=== PATIENT | female | born 1975 | race Caucasian/White ===

== ENCOUNTER → 2016-09-26 | Outpatient (CLI) | payer OTHER ==
--- NOTE | 2016-09-26 13:37 | MA ---
Right Diagnostic Digital Mammogram with iCAD Clinical Indications: Asymmetric density on recent screening mammogram. Technique: Digital spot compression CC and true lateral views. This examination was processed by the iCAD computer-aided detection system. Comparison: Recent mammogram. Baseline mammogram August 2016. Breast Density: C, 50-75%. Findings: Previous asymmetric density identified is no longer detected on the additional views or emily e lateral views. This is most likely consistent with dense overlapping breast parenchyma, however rec ommend ultrasound given the dense parenchymal pattern. Dr. Guido Bhatia agrees with findings and recommendations. Impression: ACR BI-RADS 0: Needs further imaging. Recommendation: Ultrasound of the medial aspect of the right breast for dense parenchymal pattern. Pl ease see ultrasound report and recommendations. [facility] will send a result letter to the patient. Negative mammography should not preclude additional workup of a clinically suspicious finding. Findings and recommendations have been discussed with the patient who agrees with the plan. The patient's information is entered into a reminder system with a target due date for her next mammo gram. Cosigned: Dr. Guido Bhatia
--- NOTE | 2016-09-26 15:54 | US ---
Ultrasound Right Breast History: Right breast medial aspect dense parenchymal pattern. Technique: Ultrasound imaging of the upper inner and lower inner quadrant of the right breast from th e 12 to the 6 o'clock position was performed by the intellectual property lawyer and me. Findings: In the right breast at the 2 o'clock position 3 cm from the nipple, there is a benign clus ter of simple cysts, measuring 7 x 5 x 4 mm. No evidence of solid lesions in the right breast medial aspect. The mammograms are consistent with a dense parenchymal pattern. No suspicious findings. Impressions 1. BI-RADS 2: Benign findings right breast. 2. Right breast medial aspect 7-mm cluster of benign cysts. 3. No suspicious findings on mammography.. 4. Recommend annual screening mammograms, with next mammogram in August 2017. Findings and recommendations have been discussed with the patient who agrees with the plan. Cosigned: Guido Bhatia M.D.
== END ==
LOC: CIMAGING 12:42
DX: R92.2 Inconclusive mammogram (principal); N60.11 Diffuse cystic mastopathy of right breast
CPT/HCPCS: 76641-PO; G0206

== ENCOUNTER → 2017-09-29 | Outpatient (CLI) | payer OTHER | LOC: FIMAGING 16:19 | DX: Z12.31 Encounter for screening mammogram for malignant neoplasm of breast (principal) ==

== ENCOUNTER 2018-10-18 11:42 | Observation (INO) | payer OTHER ==
[2018-10-18 12:34] LABS: PLATELET COUNT 171 10^3/uL (150-400)
--- NOTE | 2018-10-18 12:43 | EDPHY ---
H & P Stated Complaint: Sent by for cardiac workup - Personal History LMP (Females 10-55): Extended Cycle BCP/Inj Current Tetanus Diphtheria and Acellular Pertussis (TDAP): Unsure - Medical/Surgical History Hx Asthma: No Hx Chronic Respiratory Disease: No Hx Diabetes: No Hx Cardiac Disease: No Hx Renal Disease: No Hx Cirrhosis: No Hx Alcoholism: No Hx HIV/AIDS: No Hx Splenectomy or Spleen Trauma: No Other PMH: hasimotos disease - Social History Smoking Status: Never smoked Time Seen by Provider: 10/18/18 12:08 HPI/ROS: CHIEF COMPLAINT: Intermittent chest pain x2 weeks HISTORY OF PRESENT ILLNESS: 43-year-old female, 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 She describes that 2 weeks ago she was on a 3 hr bicycle ride started to develop right-sided chest pain. She is able to continue bicycling. Is no syncope or near syncope at this time. For the next few days she noted that when she would work out she has not have as much energy as usual. 6 days ago she went for 2 hr run was able to completed but notes that she felt more fatigued than usual. 2 days ago she started to develop left shoulder pain which did not seem to be related to exertion but once again notes that she did not have as much energy as she normally does. Today, she went to urgent care for evaluation was referred to the ER for further evaluation. She is currently asymptomatic while in the ER. Patient returned from a trip to [facility] on September 06 REVIEW OF SYSTEMS: 10 systems reviewed and negative with the exception of the elements mentioned in the history of present illness PAST MEDICAL & SURGICAL HISTORY: No pertinent medical or surgical history . No hyperlipidemia. No Hypertension history. SOCIAL HISTORY:Nonsmoker. No drug use. No cocaine use. FAMILY HISTORY: no family history of premature coronary artery disease or sudden unexplained , coagulopathy or vasculopathy history PHYSICAL EXAM (Prior to examination, patient consented to physical exam, hands were washed and my usual and customary physical exam procedures followed) 1) GENERAL: Well-developed, well-nourished, alert and oriented. Appears to be in no acute distress. Smiling. 2) HEAD: Normocephalic, atraumatic 3) HEENT: Pupils equal, round, reactive to light bilaterally. Sclera anicteric. Nasopharynx, oropharynx, clear, no lesions. Moist Mucous membranes. 4) NECK: Full range of motion, no meningeal signs. 5) LUNGS: Clear auscultation bilaterally, no wheezes, no rhonchi, no retractions. 6) HEART: Regular rate and rhythm, no murmur, no heave, no gallop. 7) ABDOMEN: No guarding, no rebound, no focal tenderness, negative McBurney's, negative Johnson's, negative Rovsing's, negative peritoneal sign, 8) MUSCULOSKELETAL: Moving all extremities, no focal areas of tenderness, no obvious trauma. No peripheral edema or discoloration. Negative Homans no palpable cord 9) BACK: No CVA tenderness, no midline vertebral tenderness, no fluctuance, no step-off, no obvious trauma, no visual or palpable abnormality. 10) SKIN: No rash, no petechiae. 11) Psychiatric: Patient is oriented X 3, there is no agitation. DIFFERENTIAL DIAGNOSIS: In no particular order, including but not limited to myocardial ischemia, pulmonary embolus, chest wall pain, pleural inflammation and pulmonary infectious causes. (Rio Arreola Danyell) Constitutional: Initial Vital Signs Temperature (C) 36.5 C 10/18/18 11:51 Heart Rate 52 L 10/18/18 11:51 Respiratory Rate 16 10/18/18 11:51 Blood Pressure 114/69 10/18/18 11:51 O2 Sat (%) 98 10/18/18 11:51 O2 Delivery Mode Room Air Allergies/Adverse Reactions: No Known Allergies Allergy (Verified 10/18/18 11:56) Home Medications: Medication Instructions Recorded Etonogestrel/Ethinyl Estradiol 10/18/18 [Nuvaring Vaginal Ring] Medical Decision Making - Diagnostics Imaging Results: Imaging Impressions Chest X-Ray 10/18/18 12:18 Impression: No significant interval change since 10:37 AM, with borderline cardiac silhouette enlargement, left basilar subsegmental atelectasis versus mild infiltrate, and a tiny left pleural effusion. Note: The patient had a subsequent CTPA revealing bilateral pulmonary artery thromboemboli, as well as more extensive areas of airspace disease, and that report should be separately referenced. Chest/Thorax CTA 10/18/18 13:00 Impression: Moderate-volume bilateral pulmonary artery thromboemboli, with bilateral areas of subsegmental atelectasis, infiltrate, and/or infarct, and a tiny left pleural effusion. Findings were discussed with Alessandro Arreola PA-C at 14:49, on 10/18/2018. Imaging Impressions Chest X-Ray 10/18/18 12:18 Impression: No significant interval change since 10:37 AM, with borderline cardiac silhouette enlargement, left basilar subsegmental atelectasis versus mild infiltrate, and a tiny left pleural effusion. Note: The patient had a subsequent CTPA revealing bilateral pulmonary artery thromboemboli, as well as more extensive areas of airspace disease, and that report should be separately referenced. Chest/Thorax CTA 10/18/18 13:00 Impression: Moderate-volume bilateral pulmonary artery thromboemboli, with bilateral areas of subsegmental atelectasis, infiltrate, and/or infarct, and a tiny left pleural effusion. Findings were discussed with Alessandro Arreola PA-C at 14:49, on 10/18/2018. Images reviewed myself (Rio Arreola) ED Course/Re-evaluation: 02:20 p.m.: I consulted on this patient at the request of REJI Arreola. I consulted with Dr. Wylie, rehab tech, regarding this patient's symptoms and abnormal EKG. Dr. Wylie will consult on this patient. Patient will need an echo and chest CTA. (John Gray) 12:57 p.m.: Patient has an elevated D-dimer of 0.65 describes history of pleuritic chest pain. I recommended CT angiography of the chest after discussed the indications risks benefits of imaging including, but not limited to, ionizing radiation exposure and IV contrast nephropathy. She verbalizes consent. I believe her to have decision-making capacity. 3:00 p.m.: CT angiography is positive for bilateral segmental pulmonary emboli. Discussed these results with Dr. John Gray in the ER and with the patient Will initiate Xarelto and plan on admission 3:05 p.m.: Consultation with hospitalist admit to Dr. Jenkins who will admit , hypercoag panel ordered 3:10 p.m.: Patient agrees to admission. (Rio Arreola) - Data Points Laboratory Results: Laboratory Results 10/18/18 12:25 10/18/18 12:25 10/18/18 10/18/18 10/18/18 12:29 12:25 12:25 WBC RBC Hgb Hct MCV MCH MCHC RDW Plt Count MPV Neut % (Auto) Lymph % (Auto) [place] % (Auto) Eos % (Auto) Baso % (Auto) Nucleat RBC Rel Count Absolute Neuts (auto) Absolute Lymphs (auto) Absolute Monos (auto) Absolute Eos (auto) Absolute Basos (auto) Absolute Nucleated RBC Immature Gran % Immature Gran # D-Dimer Sodium 135 mEq/L mEq/L (135-145) Potassium 4.2 mEq/L mEq/L (3.5-5.2) Chloride 109 mEq/L mEq/L (97-110) Carbon Dioxide 21 mEq/l L mEq/l (22-31) Anion Gap 5 mEq/L L mEq/L (6-14) BUN 15 mg/dL mg/dL (7-23) Creatinine 0.9 mg/dL mg/dL (0.6-1.0) Estimated GFR > 60 Glucose 92 mg/dL mg/dL (70-100) Calcium 8.9 mg/dL mg/dL (8.5-10.4) POC Troponin I 0.00 ng/mL ng/mL (0.00-0.08) TSH 2.680 uIU/mL uIU/mL (0.465-4.680) Beta HCG, Qual NEGATIVE 10/18/18 10/18/18 12:25 12:25 WBC 7.54 10^3/uL 10^3/uL (3.80-9.50) RBC 4.02 10^6/uL L 10^6/uL (4.18-5.33) Hgb 12.6 g/dL g/dL (12.6-16.3) Hct 37.6 % L % (38.0-47.0) MCV 93.5 fL fL (81.5-99.8) MCH 31.3 pg pg (27.9-34.1) MCHC 33.5 g/dL g/dL (32.4-36.7) RDW 12.0 % % (11.5-15.2) Plt Count 171 10^3/uL 10^3/uL (150-400) MPV 9.8 fL fL (8.7-11.7) Neut % (Auto) 53.0 % % (39.3-74.2) Lymph % (Auto) 36.9 % % (15.0-45.0) [place] % (Auto) 6.6 % % (4.5-13.0) Eos % (Auto) 3.1 % % (0.6-7.6) Baso % (Auto) 0.3 % % (0.3-1.7) Nucleat RBC Rel Count 0.0 % % (0.0-0.2) Absolute Neuts (auto) 4.00 10^3/uL 10^3/uL (1.70-6.50) Absolute Lymphs (auto) 2.78 10^3/uL 10^3/uL (1.00-3.00) Absolute Monos (auto) 0.50 10^3/uL 10^3/uL (0.30-0.80) Absolute Eos (auto) 0.23 10^3/uL 10^3/uL (0.03-0.40) Absolute Basos (auto) 0.02 10^3/uL 10^3/uL (0.02-0.10) Absolute Nucleated RBC 0.00 10^3/uL 10^3/uL (0-0.01) Immature Gran % 0.1 % % (0.0-1.1) Immature Gran # 0.01 10^3/uL 10^3/uL (0.00-0.10) D-Dimer 0.64 ug/mLFEU H ug/mLFEU (0.00-0.50) Sodium Potassium Chloride Carbon Dioxide Anion Gap BUN Creatinine Estimated GFR Glucose Calcium POC Troponin I TSH Beta HCG, Qual Medications Given: Discontinued Medications Rivaroxaban (Xarelto) 15 mg PO EDNOW ONE Stop: 10/18/18 15:05 Last Admin: 10/18/18 15:49 Dose: 15 mg Point of Care Test Results: Chemistry 10/18/18 12:29 POC Troponin I 0.00 ng/mL ng/mL (0.00-0.08) Departure - Departure Disposition: [facility] Clinical Impression: Pulmonary embolism Condition: Fair
[2018-10-18] MEDS ORDERED: IOHEXOL 350mgI/ML (OMNIPAQUE) 150 ML BTL IV ONE (13:06)
--- NOTE | 2018-10-18 14:49 | CPEKG ---
Test Reason : OPEN Blood Pressure : / mmHG Vent. Rate : 052 BPM Atrial Rate : 051 BPM P-R Int : 147 ms QRS Dur : 089 ms QT Int : 494 ms P-R-T Axes : -12 036 013 degrees QTc Int : [address] elev, probable normal early repol pattern Confirmed by John Gray ([id number]) on 10/18/2018 2:49:18 PM Referred By: John Gray Confirmed By:John Gray
[2018-10-18] MEDS ORDERED: RIVAROXABAN 15 MG TAB PO ONE (15:04)
[2018-10-18] MEDS ORDERED: ACETAMINOPHEN 325 MG TAB PO PRN (16:09)
[2018-10-18] MEDS ORDERED: ONDANSETRON DISINTEGRATING 4 MG TAB PO PRN (16:09)
[2018-10-18] MEDS ORDERED: ONDANSETRON 4 MG/2 ML VIAL IVP PRN (16:09)
[2018-10-18] MEDS ORDERED: HYDROCODONE/APAP 5/325 TAB PO PRN (16:09)
[2018-10-18] MEDS ORDERED: PROMETHAZINE HCL 25 MG/ML INJ IVP PRN (16:09)
[2018-10-18] MEDS ORDERED: oxyCODONE IR 5 MG TAB PO PRN (16:09)
[2018-10-18] MEDS ORDERED: HYDROmorphONE/DILAUDID 1 MG/ML INJ IVP PRN (16:09)
[2018-10-18 16:10] LABS: INR 0.92 (0.83-1.16); PROTIME(PATIENT) 12.6 SEC (12.0-15.0)
--- NOTE | 2018-10-18 16:14 | ASMTCMCOM ---
CM Note CM Note Notes: Chart reviewed. 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 Per CT patient has bilateral PE. No anticipated needs at this time. CM to follow for needs. Plan: Likely home no needs when medically cleared for discharge. Date Signed: 10/18/2018 04:14 PM Electronically Signed By:Darlyn Sharpe RN
--- NOTE | 2018-10-18 16:20 | ECHO ---
[email or web address] [address] [address] Main: [phone] Fax: Transthoracic Echocardiogram Name: HALIMA COPELAND MR#: [id number] Study Date: 10/18/2018 Study Time: 02:57 PM Date of : 1975 Age: 43 year(s) Height: 172.7 cm (68 in.) Weight: 68.04 kg (150 lb.) BSA: 1.81 m2 Gender: Female Examination: Echo Indication: chest pain Image Quality: Adequate Contrast: Requested by: John Gray BP: 104 mmHg/64 mmHg Heart Rate: Rhythm: Indication: chest pain Procedure Staff Professor Of Counseling: Alicia Tate [facility] Reading Physician: Isael Wylie MD Requesting Provider: Conclusions: Normal size left ventricle. Normal global systolic LV function. EF is 64 %. No regional wall motion abnormality. Normal diastolic LV function. Normal size right ventricle. Normal RV function. The left atrium is normal in size. The right atrium is mildly dilated. The pulmonary artery pressure is normal. Right ventricular systolic pressure measures 21mmHg. Trivial pulmonic valve regurgitation. No pericardial effusion. Measurements: Chambers Valvular Assessment AV/MV Valvular Assessment TV/PV Normal Normal Normal Name Value Range Name Value Range Name Value Range [place] (2D): 2.3 cm (1.4 cm-2.6 AV Vmax: 1.48 m/s (1 m/s-1.7 TR Vmax: 1.97 mm/s ( - ) cm) m/s) TR PGmax: 16 mmHg ( - ) IVSd (2D): 1.1 cm (0.6 cm-1.1 AV maxP mmHg ( - ) syst. PAP: 21 mmHg ( - ) cm) AV meanP mmHg ( - ) PV Vmax: 0.87 m/s (0.6 m/s-0.9 LVDd (2D): 4.9 cm (3.9 cm-5.3 LVOT Vmax: 0.98 m/s (0.7 m/s-1.1 m/s) cm) m/s) PV PGmax: 3 mmHg ( - ) LVDs (2D): 2.9 cm (2.1 cm-4 LUIS (Vmax): 1.9 cm2 ( - ) cm) LUIS (VTI): 1.9 cm ( - ) LVPWd (2D): 1.0 cm ( - ) MV E Vmax: 0.88 m/s ( - ) LVOTd 1.9 cm 1.9 cm mm MV A Vmax: 0.73 m/s ( - ) LVEF (MOD4): 64 % (>=55 %) MV E/A: 1.21 ( - ) MV PHT: 0.074 s ( - ) Patient: HALIMA COPELAND Study Date: 10/18/2018 Page 1 of 2 02:57 PM RVDd(2D): 2.7 cm (1.9 cm-3.8 MVA (PHT): 3.0 s ( - ) cmmm) Continued Measurements: Chambers Valvular Assessment AV/MV Valvular Assessment TV/PV Name Value Name Value Name Value LADs: 3.6 cm MV DecTime: 250 m/s CVP (est.): 5 mmHg LADs Lon.9 cm MV E/E' Septal: 7.90 LA Area: 19.2 cm2 MV E/E' Lateral: 5.90 RA Area: 19.9 cm2 Additional Vessels Name Value Ao Ascendin.4 cm Inferior Vena Cava: 2.0 cm Findings: Left Ventricle: Normal size left ventricle. No LV hypertrophy. Normal global systolic LV function. EF is 64 %. No regional wall motion abnormality. Normal diastolic LV function. Right Ventricle: Normal size right ventricle. Normal RV function. Left Atrium: The left atrium is normal in size. Right Atrium: The right atrium is mildly dilated. Definite Eustachian valve in right atrium. Mitral Valve: The mitral valve is normal in appearance and function. No mitral stenosis is present. Mild mitral valve regurgitation is present. Aortic Valve: The aortic valve is tri-leaflet. There is no significant aortic valve regurgitation. No aortic valve stenosis is present. Tricuspid Valve: The tricuspid valve is normal in appearance and function. Mild tricuspid regurgitation is present. The pulmonary artery pressure is normal. Right ventricular systolic pressure measures 21mmHg. Pulmonic Valve: The pulmonic valve is normal in appearance and function. Trivial pulmonic valve regurgitation. Aorta: The aorta is normal. Normal size aortic root measuring 2.3 cm. Normal size ascending aorta measuring 2.4 cm. IVC: The IVC is normal sized. Pericardium: No pericardial effusion. Exam Comments: Patient supine for most of exam due to pain. (No Signature Object) Patient: HALIMA COPELAND Study Date: 10/18/2018 Page 2 of 2 02:57 PM [id number]
--- NOTE | 2018-10-18 19:13 | PDGENHP ---
History and Physical - Chief Complaint shoulder/chest pain, sob - History of Present Illness This is a 43 yo F with no significant PMH presenting with complaints of shortness of breath with exertion for the last 2 weeks as well as right chest discomfort that has since progressed to include some left sided chest and shoulder pain as well. Patient is quite active and noticed that she was only limited initially with extreme exertion such as very long bike rides or runs. She was able to complete her usual 2 hour run, but noted she was not feeling as well as usual during it and felt fatigued and as if she were fighting for air somewhat during the run. She did recently travel to [facility] which she does frequently, she returned home from that trip on 09/09, the longest stretch of the flight is 15 hours. She has not had any leg swelling or pain since then. She does use hormonal contraception and currently has been using nuvaring. History Information - Allergies/Home Medication List Allergies/Adverse Reactions: No Known Allergies Allergy (Verified 10/18/18 11:56) Home Medications: Etonogestrel/Ethinyl Estradiol [Nuvaring Vaginal Ring] 1 insert VG Q30D [Last Taken 10/11/18] Ibuprofen [Motrin (*)] 400 mg PO DAILY PRN 10/18/18 [Last Taken 10/18/18 03:00] Naproxen Sodium [Aleve 220 MG (*)] 440 mg PO BID PRN 10/18/18 [Last Taken 08:00] I have personally reviewed and updated: family history, medical history, social history, surgical history - Past Medical History no pertinent PMH - Surgical History Additional surgical history: ankle surgery x 2 - Family History Positive for: non-pertinent Additional family history: no hx of clots. 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 Review of Systems Review of Systems: ROS: 10pt was reviewed & negative except for what was stated in HPI & below Physical Exam Physical Exam: Temp Pulse Resp BP Pulse Ox 36.5 C 66 20 131/74 H 96 10/18/18 16:28 10/18/18 16:28 10/18/18 16:28 10/18/18 16:28 10/18/18 16:28 Constitutional: no apparent distress, appears nourished Eyes: PERRL, anicteric sclera Ears, Nose, Mouth, Throat: moist mucous membranes, hearing normal Cardiovascular: regular rate and rhythym, no murmur, rub, or gallop, No edema Respiratory: no respiratory distress, no rales or rhonchi, clear to auscultation Gastrointestinal: normoactive bowel sounds, soft, non-tender abdomen Genitourinary: no bladder tenderness Skin: warm, normal color Musculoskeletal: full muscle strength Neurologic: AAOx3 Psychiatric: interacting appropriately, not anxious, not encephalopathic Lab Data & Imaging Review 10/18/18 12:25 10/18/18 12:25 WBC 7.54 10^3/uL (3.80-9.50) 10/18/18 12:25 RBC 4.02 10^6/uL (4.18-5.33) L 10/18/18 12:25 Hgb 12.6 g/dL (12.6-16.3) 10/18/18 12:25 Hct 37.6 % (38.0-47.0) L 10/18/18 12:25 MCV 93.5 fL (81.5-99.8) 10/18/18 12:25 MCH 31.3 pg (27.9-34.1) 10/18/18 12:25 MCHC 33.5 g/dL (32.4-36.7) 10/18/18 12:25 RDW 12.0 % (11.5-15.2) 10/18/18 12:25 Plt Count 171 10^3/uL (150-400) 10/18/18 12:25 MPV 9.8 fL (8.7-11.7) 10/18/18 12:25 Neut % (Auto) 53.0 % (39.3-74.2) 10/18/18 12:25 Lymph % (Auto) 36.9 % (15.0-45.0) 10/18/18 12:25 [place] % (Auto) 6.6 % (4.5-13.0) 10/18/18 12:25 Eos % (Auto) 3.1 % (0.6-7.6) 10/18/18 12:25 Baso % (Auto) 0.3 % (0.3-1.7) 10/18/18 12:25 Nucleat RBC Rel Count 0.0 % (0.0-0.2) 10/18/18 12:25 Absolute Neuts (auto) 4.00 10^3/uL (1.70-6.50) 10/18/18 12:25 Absolute Lymphs (auto) 2.78 10^3/uL (1.00-3.00) 10/18/18 12:25 Absolute Monos (auto) 0.50 10^3/uL (0.30-0.80) 10/18/18 12:25 Absolute Eos (auto) 0.23 10^3/uL (0.03-0.40) 10/18/18 12:25 Absolute Basos (auto) 0.02 10^3/uL (0.02-0.10) 10/18/18 12:25 Absolute Nucleated RBC 0.00 10^3/uL (0-0.01) 10/18/18 12: Immature Gran % 0.1 % (0.0-1.1) 10/18/18 12:25 Immature Gran # 0.01 10^3/uL (0.00-0.10) 10/18/18 12:25 PT 12.6 SEC (12.0-15.0) 10/18/18 15:32 INR 0.92 (0.83-1.16) 10/18/18 15:32 APTT 22.4 SEC (23.0-38.0) L 10/18/18 15:32 Fibrinogen 432 mg/dL (214-456) 10/18/18 15:32 D-Dimer 0.64 ug/mLFEU (0.00-0.50) H 10/18/18 12:25 Sodium 135 mEq/L (135-145) 10/18/18 12:25 Potassium 4.2 mEq/L (3.5-5.2) 10/18/18 12:25 Chloride 109 mEq/L (97-110) 10/18/18 12:25 Carbon Dioxide 21 mEq/l (22-31) L 10/18/18 12:25 Anion Gap 5 mEq/L (6-14) L 10/18/18 12:25 BUN 15 mg/dL (7-23) 02/17/19 12:25 Creatinine 0.9 mg/dL (0.6-1.0) 10/18/18 12:25 Estimated GFR > 60 10/18/18 12:25 Glucose 92 mg/dL (70-100) 10/18/18 12:25 Calcium 8.9 mg/dL (8.5-10.4) 10/18/18 12:25 POC Troponin I 0.00 ng/mL (0.00-0.08) 10/18/18 12:29 Troponin I < 0.012 ng/mL (0.000-0.034) 10/18/18 15:45 TSH 2.680 uIU/mL (0.465-4.680) 10/18/18 12:25 Beta HCG, Qual NEGATIVE 10/18/18 12:25 Visualized and Interpreted Chest x-ray results: Yes Chest X-Ray results: other (atelectasis) Visualized and Interpreted imaging results: Yes Interpretation: CTA: with moderate volume bilateral PE with associated atelectasis or infarct bilaterally. Echo: normal, ef 64%, PAP wnl Visualized and Interpreted EKG results: Yes EKG Interpretation: Positive for: normal sinsus rhythm Assessment & Plan Assessment: Pulmonary embolism (Acute) 43 yo F with no significant PMH presenting with cp/sob and found to have bilateral, moderate volume PE # bilateral PE: with a PESI score of 45 (only for age), making her very low risk , she is on RA and comfortable, pain is relatively minor. Started on xarelto in the ER which we will continue. She had echo in ER that is normal and hypercoagulable panel sent. She does have risk factor of being on hormonal contraceptive as well as addition of long travel time which likely was underlying etiology. Discussed with her that at her age, and particularly now with clot found, that hormonal contraception contraindicated. She will f/u with her PCP for results of hypercoag panel. Discussed with patient risks of AC at length, reviewed that 3-6 months treatment is likely appropriate and discussed f /u care plan. # pulmonary infiltrate: suspect this is likely infarction rather than pna or atelectasis, patient with relatively minor pain, continue pain meds as needed # observation status Patient new to my care. Old records reviewed and summarized as above. Care plan reviewed with ER doctor including plans for overnight obs.
[2018-10-18] MEDS: RIVAROXABAN 15 MG TAB PO SCH (22:06)
[2018-10-19] MEDS: RIVAROXABAN 15 MG TAB PO SCH (08:28)
[2018-10-19 08:29] VITALS: BP 108/66
--- NOTE | 2018-10-19 11:02 | ASMTLACE ---
LACE Length of stay for Answers: Less than 1 day current admission Acuity / Level of Answers: No Care: Did the patient have an inpatient admission? Comorbidities - select Answers: Other Notes: PE all that apply # of Emergency department Answers: 1-2 visits in the last 6 months Score: 2 Date Signed: 10/19/2018 11:01 AM Electronically Signed By:Darlyn Sharpe RN
--- NOTE | 2018-10-19 11:03 | ASMTDCNOTE ---
Case Management Discharge Discharge Order Complete? Answers: Yes Patient to Obtain Answers: Independently Medications Transportation Arranged Answers: Family/Friends Family Notified Answers: Yes Discharge Comments Notes: Medically cleared for dischareg to home. No current needs. Date Signed: 10/19/2018 11:03 AM Electronically Signed By:Darlyn Sharpe RN
--- NOTE | 2018-10-19 11:34 | GDS ---
[f rep st] DISCHARGE SUMMARY DISCHARGE DIAGNOSES: 1. Provoked bilateral pulmonary embolism. 2. Atypical chest pain. HISTORY OF PRESENT ILLNESS: A 43-year-old female with no significant past medical history, presenting with shortness of breath with exertion for the last 2 weeks along with right chest discomfort. She also has pain in her left chest with radiation to the shoulder. 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 Over the past 2 weeks she has felt more tired and her runs have been slow. She ran her usual 2 hour run yesterday, but not feeling as well. Recently recently to [place] on a 15-hr flight. No leg swelling or pain since then. Is on hormonal contraceptive. HOSPITAL COURSE: 1 Provoked bilateral pulmonary embolism: hemodynamically stable with negative troponin. Echocardiogram NL. Discharge with Xarelto. Hypercoagulable panel was sent. Rec follow up with a PCP to discuss options for contraception. Rec at least 3 month's treatment 2. Pulmonary infiltrate: Likely infarct rather than pneumonia with no infectious symptoms. DISPOSITION: Patient is stable for discharge home. NEW MEDICATIONS: Xarelto 15 mg twice daily for 21 days, then 20 thereafter. FOLLOWUP: 1. Establish care with a primary care physician. 2. Labs pending, hypercoagulable panel. PHYSICAL EXAMINATION: VITAL SIGNS: Today, temperature 36.7, blood pressure 108 /66, heart rate in the 60s, respirations 16, 94% on room air. GENERAL: She is well appearing, no acute distress. HEENT: PERRLA. Moist mucous membranes. CV : Regular rate and rhythm. LUNGS: Clear. ABDOMEN: Soft, nontender, nondistended : No Patel. MUSCULOSKELETAL: Moving all 4 extremities. NEURO : 2 through 12 intact. PSYCH: Alert and oriented x3. TIME SPENT ON DISCHARGE: Greater than 30 minutes bedside counseling patient and on medications, activity levels, and followup plan. /[id number]/MODL MTDD
--- NOTE | 2018-10-19 12:49 | CPEKG ---
Test Reason : OPEN Blood Pressure : / mmHG Vent. Rate : 056 BPM Atrial Rate : 056 BPM P-R Int : 158 ms QRS Dur : 093 ms QT Int : 459 ms P-R-T Axes : -10 056 027 degrees QTc Int : 444 ms Sinus rhythm Consider left ventricular hypertrophy Confirmed by Kofi Howe ([id number] on 10/19/2018 12:48:56 PM Referred By: Hank Jenkins Confirmed By:Kofi Howe
[2018-11-08] MEDS ORDERED: RIVAROXABAN 20 MG TAB PO SCH (09:00)
== END 2018-10-19 11:48 | disposition home or self-care (01) ==
LOC: F1N 16:04
PROVIDERS: ADMIT Internal Medicine; ATTEND Internal Medicine
DX: I26.99 Other pulmonary embolism without acute cor pulmonale (principal); R07.89 Other chest pain
CPT/HCPCS: 71046; 71275; 93005; 93306; 99285; G0378; 84484-ER; 85300-90; 85303-90; 85306-90; 86147-90; Q9967

== ENCOUNTER → 2018-10-18 | Outpatient (CLI) | payer OTHER | LOC: BMCIMAGING 10:29 | PROVIDERS: ATTEND Family Medicine | DX: J98.4 Other disorders of lung (principal) ==

== ENCOUNTER → 2018-11-09 | Outpatient (CLI) | payer OTHER | LOC: FIMAGING 16:16 | DX: Z12.31 Encounter for screening mammogram for malignant neoplasm of breast (principal) ==

== ENCOUNTER → 2019-02-12 | Outpatient (CLI) | payer OTHER | LOC: BMCIMAGING 15:06 ==